=== PATIENT | male | born 1955 | race Caucasian/White ===

== ENCOUNTER 2021-01-26 23:04 | Emergency (ER) | payer MEDICARE, BC, OTHER ==
[~2021-01-26] VITALS: Ht 175.3 cm; Wt 78.9 kg
[2021-01-27] MEDS ORDERED: HYDROcodone-ACET 5/325MG TAB PO ONE (01:00)
[2021-01-27 02:25] VITALS: BP 110/82
== END 2021-01-27 02:36 | disposition home or self-care (01) ==
LOC: ER 23:04
DX: S42.001A Fracture of unspecified part of right clavicle, initial encounter for closed fracture (principal); J44.9 Chronic obstructive pulmonary disease, unspecified; Z95.0 Presence of cardiac pacemaker; V89.2XXA Person injured in unspecified motor-vehicle accident, traffic, initial encounter; Y93.89 Activity, other specified; Y92.89 Other specified places as the place of occurrence of the external cause; Y99.8 Other external cause status
CPT/HCPCS: 29105; 70450; 71045; 72125; 73000; 73030; 73070